=== PATIENT | female | born 2005 | race Hispanic/Latino ===

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

== ENCOUNTER 2024-02-17 14:21 | Emergency (ER) | payer OTHER, SELFPAY ==
[2024-02-17 14:39] VITALS: BP 125/85; PULSE 93; RESP 16; TEMP 36.6; O2SAT 100
--- NOTE | 2024-02-17 15:01 | ED_ITS ---
HPI - General Adult General Chief complaint: Extremity Injury, Upper Stated complaint: Left Hand Injury Source: patient Mode of arrival: ambulatory Limitations: no limitations History of Present Illness HPI narrative: 19 y/o female presented for c/o left wrist pain for about 4 weeks. Endorses pain is worse with any movement of the wrist, and states she cannot tolerate holding anything with the left hand. States she just started hurting a few weeks ago, without known injury or over use. 3 days ago while at work she attempted to catch a heavy box falling from a shelf, which hurt the wrist more. States after initial pain, her pcp ordered xray but she does not know any results. She was advised to take ibuprofen. Denies swelling or deformity, numbness, tingling of the fingers. Pt is right hand dominant. Related Data Allergies Allergy/AdvReac Type Severity Reaction Status Date / Time grass pollen Allergy Mild Rash Verified 07/29/22 16:02 house dust mite Allergy Mild Rash Verified 07/29/22 16:02 Review of Systems Review of Systems: CONSTITUTIONAL: Denies body aches, fever, chills CARDIOVASCULAR: Denies chest pain, palpitations, or edema. RESPIRATORY: Denies cough or dyspnea. SKIN: Denies wounds. MUSCULOSKELETAL: per HPI NEUROLOGIC: Denies headache, numbness, tingling, or weakness. All systems reviewed & are unremarkable except as noted in HPI and below PMFSH Past Medical History Medical History Exercise-induced asthma Brachymetatarsia Surgical History Surgical History History of foot surgery Family History Family History Mother Hypertension GERD (gastroesophageal reflux disease) Social History Social History Social History: Student Smoking status: Never smoker Second hand tobacco smoke exposure: No Alcohol intake: never Substance use: never Substance use type: does not use Lack of Transportation: No Lack of Food: Never True Current Housing: I Have Housing Concerned About Future Housing: No Difficulty Paying Gas/Electric Bills: No Difficulty Paying for Meds: No Currently Unemployed: YES Education: High School Diploma/GED Difficulty w/ Childcare or Family Care: No Living arrangements: with family Occupation/Education: student Gender identity (if verbalized by the patient): Female Sexual Orientation (if Verbalized by the Patient): Straight or Heterosexual Spiritual care concerns: No Comments At time of signature, I have reviewed and agree with nursing past medical, surgical, social and family history unless otherwise noted. Please see nursing chart for further information. There is no relevant family history pertinent to the presenting complaint Exam Narrative: GENERAL: Well-appearing, well-nourished, and in no acute distress. CHEST: Speaks in full sentences. No respiratory distress. HEART: Regular rate and rhythm. Normal and equal peripheral pulses. EXTREMITIES: Left hand has normal strength and sensation. Slightly limited r fawad of motion with flexion/extension/rotation of wrist due to endorses pain with movement. No swelling or ecchymosis, No point tenderness. No open wounds, or obvious deformity; alignment normal, pulse palpable and equal bilaterally, skin warm, dry, pink. Capillary refill less than 3 seconds. SKIN: Warm, dry NEURO: Alert and oriented x3. PSYCH: Normal mood and affect Course Course Emergency Course: Patient is aware of diagnosis, understands and agrees to treatment plan. Anticipatory guidance given. Patient agrees to follow-up as directed and is aware of reasons to seek care at the emergency department. Portions of this record may have been created with voice recognition software Level of Care: Express Care Visit Vital Signs Vital signs: Vital Signs Temperature 97.9 F 02/17/24 14:39 Pulse Rate 93 02/17/24 14:39 Respiratory Rate 16 02/17/24 14:39 Blood Pressure 125/85 02/17/24 14:39 Pulse Oximetry 100 02/17/24 14:39 Oxygen Delivery Room Air 02/17/24 14:39 Temperature 97.9 F 02/17/24 14:39 Pulse Rate 93 02/17/24 14:39 Respiratory Rate 16 02/17/24 14:39 Blood Pressure 125/85 02/17/24 14:39 Pulse Oximetry 100 02/17/24 14:39 Oxygen Delivery Room Air 02/17/24 14:39 Reviewed Medical Decision Making MDM Narrative Medical decision making narrative: Discussed physical exam findings c/w tendonitis. Rx steroid and and avised on wrist splint. She will f/u with Dr Abernathie prn. Advised supportive measures and signs/symptoms to go to the ER. Pt is appropriate for outpt treatment and f/u. Differential Diagnosis Differential Diagnosis: sprain/strain of wrist, Colles' fracture, wrist fracture, hand fracture, finger sprain, dislocation of finger, gout, cellulitis, arthritis, tendonitis Vital Signs Vital Signs: Vital Signs Temperature 97.9 F 02/17/24 14:39 Pulse Rate 93 02/17/24 14:39 Respiratory Rate 16 02/17/24 14:39 Blood Pressure 125/85 02/17/24 14:39 Pulse Oximetry 100 02/17/24 14:39 Oxygen Delivery Room Air 02/17/24 14:39 Temperature 97.9 F 02/17/24 14:39 Pulse Rate 93 02/17/24 14:39 Respiratory Rate 16 02/17/24 14:39 Blood Pressure 125/85 02/17/24 14:39 Pulse Oximetry 100 02/17/24 14:39 Oxygen Delivery Room Air 02/17/24 14:39 Discharge Plan Discharge Clinical Impression: Left wrist tendinitis Patient Disposition: Home, Self-Care Condition: Stable Instructions: Tendinitis (ED) Additional Instructions: Rest and elevate the left hand, activity as tolerated. Limit lifting, pushing, or pulling movements until symptoms are completely resolved. Apply ice 15-20 minute intervals several times a day Keep it wrapped with GUNNAR or use a soft wrist splint Take medication as directed Motrin every 8 hours, alternate with Tylenol 1000mg every 8 hours as needed Follow up with your primary care provider as needed Dr Whittington is the hand specialist with [facility] Go to the ER for worsening symptoms or concerns Patient Language: [place] Prescriptions: New prednisone 50 mg tablet 50 mg PO DAILY Qty: 5 0RF No Action meclizine 12.5 mg tablet 12.5 mg PO TID PRN (Reason: dizziness) Qty: 30 0RF ferrous sulfate 325 mg (65 mg iron) tablet 325 mg PO DAILY Qty: 30 2RF Follow-up/Referrals: Matty,Katrin Perez APRN [Primary Care Provider] - Stand Alone Forms: Work/School Release IP Time of Disposition: 15:17
== END 2024-02-17 15:26 | disposition home or self-care (01) ==
PROVIDERS: Emergency Provider Nurse Practitioner Family; PCP Nurse Practitioner Family
DX: M77.8 Other enthesopathies, not elsewhere classified (principal); J45.990 Exercise induced bronchospasm
CPT/HCPCS: 99213; G0463